=== PATIENT | female | born 1985 | race African-American/Black ===

== ENCOUNTER 2016-12-28 06:47 | Day surgery (SDC) | payer OTHER ==
[~2016-12-28] VITALS: Ht 165.1 cm; Wt 79.5 kg
[2016-12-28] VITALS (8 sets, daily range): BP systolic 132–169; BP diastolic 60–109; PULSE 68–93; RESP 20; TEMP 98.2–98.4; O2SAT 93–98
[~2016-12-28 06:47] MED LIST: BACL10TA PO; GABA300C3 PO; HYDR-3533 PO; METO25 PO; OCUVTAB PO
[2016-12-28] MEDS ORDERED: SODIUM CHLOR 0.9% 1000 ML INJ 1,000 ML IV SCH (07:00)
[2016-12-28] MEDS ORDERED: DULO20 PO (07:16)
[2016-12-28] MEDS ORDERED: NORV2.5T PO (07:16)
[2016-12-28 07:58] LABS: AUTOMATED NEUTROPHIL # 2.5 TH/MM3 (1.8-7.7); BASOPHIL % 0.4 % (0.0-2.0); EOSINOPHIL # 0.1 TH/MM3 (0-0.4); EOSINOPHIL % 1.3 % (0.0-4.0); HEMATOCRIT 39.7 % (35.0-46.0); HEMOGLOBIN 13.4 GM/DL (11.6-15.3); LYMPH % 36.4 % (9.0-44.0); LYMPHOCYTE # 1.7 TH/MM3 (1.0-4.8); MEAN CELL VOLUME 85.5 FL (80.0-100.0); MEAN CORPUSCULAR HEMOGLOBIN 28.8 PG (27.0-34.0); MEAN CORPUSCULAR HGB CONC 33.7 % (32.0-36.0); MONOCYTE # 0.4 TH/MM3 (0-0.9); NEUT % 53.9 % (16.0-70.0); PLATELET COUNT 193 TH/MM3 (150-450); RED BLOOD COUNT 4.64 MIL/MM3 (4.00-5.30); RED CELL DISTRIBUTION WIDTH 13.5 % (11.6-17.2); WHITE BLOOD COUNT 4.6 TH/MM3 (4.0-11.0)
[2016-12-28 08:03] LABS: INTERNATIONAL NORMALIZED RATIO 0.9 RATIO; PROTHROMBIN TIME - PATIENT 10.2 SEC (9.8-11.6)
[2016-12-28 08:08] LABS: BICARBONATE 25.5 MEQ/L (21.0-32.0); CALCIUM 8.7 MG/DL (8.5-10.1); CREATININE 0.65 MG/DL (0.50-1.00)
[2016-12-28 09:31] LABS: TOTAL PROTEIN,CSF 18.6 MG/DL (15.0-45.0)
[2016-12-28 09:55] LABS: SUPERNATE COLOR TUBE #1 CLEAR (CLEAR)
--- NOTE | 2016-12-28 10:35 | RADRPT ---
EXAM DATE/TIME: 12/28/2016 08:42 [place] COMPARISON: No previous studies available for comparison. INDICATIONS : Patient presents with migraines in need of lumbar puncture to rule out multiple sclerosis. MEDICAL HISTORY : Migraine hx CVA Muscle scelrosis Protein deficiency SURGICAL HISTORY : N/A ENCOUNTER: Initial ACUITY: 4 - 6 months PAIN SCORE: 0/10 LOCATION: N/A LUMBAR PUNCTURE TIME: 08:35 hours FLUORO TIME: 0.15 minutes IMAGE SERIES: 0 ACCESS LEVEL: L3-4 OPENING PRESSURE: 23.5cm of water CLOSING PRESSURE: 17.5 cm of water FLUID: 19 cc of clear CSF was collected and sent to the laboratory for analysis. PROCEDURE : 1. Fluoroscopic guided lumbar puncture. 2. Recording of opening pressure. The risks, benefits and alternatives to the procedure were explained and verbal and written consent w as obtained. The site was prepped in sterile fashion. Full sterile technique was used, including ca p, mask, sterile gloves and gown and a large sterile sheet. Hand hygiene and 2% chlorhexidine and/or betadine/alcohol prep was utilized per protocol for cutaneous antisepsis. The skin and subcutaneous tissues were infiltrated with local anesthetic solution. With fluoroscopic guidance the lumbar thecal sac was punctured at the above level described above and the opening pressure was recorded. The above described fluid was removed without difficulty. The patient tolerated the procedure well and there were no complications. CONCLUSION: Uncomplicated fluoroscopically guided lumbar puncture with pressures as above. Bhanu Walsh MD on December 28, 2016 at 10:34 Board Certified Radiologist. This report was verified electronically.
[2016-12-28 10:36] LABS: CSF LYMPHOCYTES 100 %; CSF NEUTROPHILS 0 %; RBC TUBE #1 0 /MM3; WBC TUBE #1 2 /MM3 (0-10)
[2016-12-28 10:58] LABS: RBC TUBE #4 0 /MM3; WBC TUBE #4 1 /MM3 (0-10)
[2016-12-28 11:05] LABS: CSF LYMPHOCYTES 87 %; CSF MONOCYTES 13 %; CSF NEUTROPHILS 0 %
[2016-12-29 09:50] LABS: HSV 1,PCR Negative (Negative)
[2016-12-30 15:54] LABS: CMV DNA QUANT BY RAPID PCR Negative (Negative); LYME IGG IMMUNOBLOT CSF None Detected bands (None Detected); LYME IGM IMMUNOBLOT CSF None Detected bands (None Detected)
[2016-12-30 17:53] LABS: CSF CRYPTOCOCCUS ANTIGEN NOT DETECTED (NEGATIVE)
[2016-12-31 09:04] LABS: CSF CRYPTOCOCCUS AG CONF ND (NOT DETECTD)
[2016-12-31 17:51] LABS: VZV PCR RESULT <500 (<500 copies)
== END 2016-12-28 11:25 | disposition home or self-care (01) ==
LOC: HROP 06:47 → HRIP 06:47 → HROP 11:25
PROVIDERS: ATTEND Psychiatry & Neurology Neurology
DX: G35 Multiple sclerosis (principal); E46 Unspecified protein-calorie malnutrition; Z86.73 Personal history of transient ischemic attack (TIA), and cerebral infarction without residual deficits
CPT/HCPCS: 62270; 77003; 80048; 82040; 82042; 82784; 82945; 83873; 83916; 84157; 85025; 85610; 85730; 86403; 86618; 87070; 87205; 87497; 87529; 87799; 89051; J7030

== ENCOUNTER 2016-12-31 14:02 | Emergency (ER) | payer OTHER ==
[~2016-12-31] VITALS: Ht 167.6 cm; Wt 80.0 kg
[~2016-12-31 14:02] MED LIST changes: -BACL10TA PO; +DULO20 PO; -GABA300C3 PO; -HYDR-3533 PO; -METO25 PO; +NORV2.5T PO; -OCUVTAB PO
[2016-12-31 14:04] VITALS: BP 177/93; PULSE 96; RESP 12; TEMP 98.4; O2SAT 99
[2016-12-31] MEDS ORDERED: HYDR12.56 PO (15:40)
[2016-12-31] MEDS ORDERED: TRAM50TA PO (15:40)
--- NOTE | 2016-12-31 15:49 | PD ---
HPI Chief Complaint: Headache Time Seen by Provider: 14:54 Travel History International Travel<30 days: No Contact w/Intl Traveler<30days: No Traveled to known affect area: No History of Present Illness HPI This patient complains of headache. 3 days ago she had a lumbar puncture to evaluate for possible MS. The following day she developed a headache encompassing the entirety of her head. It's persisted. It's worse when she stands up and better when she lies flat. She denies fever or head injury or thunderclap onset. She takes no blood thinners. She has not really tried anything for the headache. PFSH Past Medical History Cancer: No Cardiovascular Problems: No Diabetes: No Diminished Hearing: No Endocrine: No Gastrointestinal Disorders: Yes (constipation, gerd, IBS) Genitourinary: No Hepatitis: Yes (C) Hiatal Hernia: No Hypertension: Yes Immune Disorder: No Musculoskeletal: No Neurologic: Yes (Migraines, increase numbness right side) Psychiatric: No Reproductive: No Immunizations Current: Yes Migraines: Yes Thyroid Disease: No ?: Unknown : 2 Para: 2 Past Surgical History AICD: No Joint Replacement: No Pacemaker: No Social History Alcohol Use: No Tobacco Use: No Substance Use: No Allergies-Medications (Allergen,Severity, Reaction): Coded Allergies: codeine (Unverified Allergy, Mild, Nausea/Vomiting, 12/31/16) Reported Meds & Prescriptions Reported Meds & Active Scripts Active Tramadol (Tramadol HCl) 50 Mg Tab 50 Mg PO Q6H PRN Hydrochlorothiazide 12.5 Mg Tab 12.5 Mg PO DAILY Reported Cymbalta DR (Duloxetine HCl) 20 Mg Capdr 20 Mg PO DAILY Norvasc (Amlodipine Besylate) 2.5 Mg Tab 2.5 Mg PO DAILY Review of Systems General / Constitutional: No: Fever Eyes: No: Visual changes HENT: Positive: Headaches Cardiovascular: No: Chest Pain or Discomfort Respiratory: No: Shortness of Breath Gastrointestinal: No: Abdominal Pain Genitourinary: No: Dysuria Musculoskeletal: No: Pain Skin: No Rash Neurologic: Positive: Headache, No: Weakness Psychiatric: No: Depression Endocrine: No: Polydipsia Hematologic/Lymphatic: No: Easy Bruising Physical Exam Narrative GENERAL: Well-nourished, well-developed patient in no apparent distress. SKIN: Focused skin assessment reveals no rash and nodules. Skin is Warm and dry. HEAD: Atraumatic. Normocephalic. EYES: Pupils equal and round. No scleral icterus. No injection or drainage. ENT: No nasal bleeding or discharge. Mucous membranes pink and moist. NECK: Trachea midline. No JVD. CARDIOVASCULAR: Regular rate and rhythm. No murmur appreciated. RESPIRATORY: No accessory muscle use. Clear to auscultation. Breath sounds equal bilaterally. GASTROINTESTINAL: Abdomen soft, non-tender, nondistended. Hepatic and splenic margins not palpable. MUSCULOSKELETAL: No obvious deformities. No clubbing. No cyanosis. No edema. NEUROLOGICAL: Awake and alert. No obvious cranial nerve deficits. Motor grossly within normal limits. Normal speech. PSYCHIATRIC: Appropriate mood and affect; insight and judgment normal. Data Data Last Documented VS Vital Signs Date Time Temp Pulse Resp B/P (MAP) Pulse Ox O2 Delivery O2 Flow Rate FiO2 12/31/16 14:04 98.4 96 12 177/93 (121) 99 MDM Medical Decision Making Medical Screen Exam Complete: Yes Emergency Medical Condition: Yes Medical Record Reviewed: Yes Differential Diagnosis Differential diagnosis includes migraine, tension headache, cluster headache, meningitis. Narrative Course I have reviewed the patient's electronic medical record. Reviewed her LP note and studies which looked normal Patient looks clinically well with normal neurologic exam and does not appear to be distressed I wrote her some tramadol for symptom relief I suspect she has a post-LP headache Hopefully this will resolve gradually over a few more days She also noted belatedly a urticarial rash on her right thigh. Her only medication that is recently started was amlodipine Unclear if that the true cause of this but it is the only likely culprit. She will stop that and I substituted hydrochlorothiazide Advised her to track her blood pressure daily Diagnosis Primary Impression: Post-lumbar puncture headache Additional Impression: Allergic reaction Qualified Codes: T78.40XA - Allergy, unspecified, initial encounter Additional Instructions: Check and record blood pressure daily Use Benadryl as needed for hives The patient was warned about potential sedation for the medications they will receive on prescription. Med/Other Pt SpecificInfo: Prescription(s) given Scripts Tramadol (Tramadol) 50 Mg Tab 50 MG PO Q6H Y for PAIN, #20 TAB 0 Refills Prov: Carlitos Holliday MD 12/31/16 Hydrochlorothiazide (Hydrochlorothiazide) 12.5 Mg Tab 12.5 MG PO DAILY, #30 TAB 0 Refills Prov: Carlitos Holliday MD 12/31/16 Disposition: 01 DISCHARGE HOME Condition: Stable Carlitos Holliday MD Dec 31, 2016 15:49
== END 2016-12-31 16:10 | disposition home or self-care (01) ==
LOC: NEPE 14:02
DX: G97.1 Other reaction to spinal and lumbar puncture (principal); T78.40XA Allergy, unspecified, initial encounter; I10 Essential (primary) hypertension
CPT/HCPCS: 99284

== ENCOUNTER → 2017-01-02 | Day surgery (SDC) | payer OTHER ==
[~2017-01-02] VITALS: Ht 165.1 cm; Wt 81.4 kg
[~2017-01-02] MED LIST changes: +CHLORHEXIDINE GLUCONATE 2 % 1 PACK (2 CLOTHS) TOPICAL PRN; +HYDR12.56 PO; +INSULIN HUMAN REGULAR 1,000 UNITS/10 ML VIAL SQ PRN; +LACTATED RINGER'S 1000 ML IV PRN; +METOPROLOL TARTRATE 25 MG TAB PO PRN; +POVIDONE IODINE 5% (ANTISEPSIS KIT) 4 APPLICATIONS EACH NARE PRN; +SODIUM CHLORID 0.9% 500 ML IV PRN; +TRAM50TA PO
[2017-01-02 12:10] VITALS: BP 154/97; PULSE 84; RESP 18; TEMP 98.6; O2SAT 100
== END | disposition home or self-care (01) ==
LOC: HSDC 09:32
PROVIDERS: ATTEND Anesthesiology
DX: G97.1 Other reaction to spinal and lumbar puncture (principal)
CPT/HCPCS: 62273